=== PATIENT | male | born 2005 | race Hispanic/Latino ===

== ENCOUNTER 2025-03-28 23:26 | Emergency (ER) | payer OTHER ==
[2025-03-28] MEDS ORDERED: Ibuprofen 200 MG TAB ONE (23:56)
== END 2025-03-29 00:41 | disposition home or self-care (01) ==
LOC: MADERS 23:26
DX: J06.9 Acute upper respiratory infection, unspecified (principal); B97.89 Other viral agents as the cause of diseases classified elsewhere; E03.9 Hypothyroidism, unspecified; Z79.890 Hormone replacement therapy
CPT/HCPCS: 87426; 99283